=== PATIENT | female | born 1970 | race African-American/Black ===

== ENCOUNTER → 2017-01-21 | Outpatient (CLI) | payer BC ==
--- NOTE | ~2017-01-21 | CR210 ---
[facility] A Service of [facility] RADIOLOGY TEXT RESULTS PATIENT: STANTON JEAN LOCATION: [facility] : 72 UNIT #: [id number] AGE: [address]: Savanah Painting MD SEX: F ORDER DR: [id number] [facility] [place] [address] [place], [place] [address] [id number] O MR#: [id number] Acc #: [id number] NAME: STANTON JEAN : 1970 SEX: F STUDY DATE/TIME: 01/21/2017 16:54 UNIT: [facility] ROOM: STUDY DESCRIPTION: CR Ribs Uni 2 View W PA Ch Lt Attending Physician: Savanah Painting M.D. Referring Physician: Savanah Painting M.D. Ordering Physician: Savanah Painting M.D. Primary Care Physician: Savanah Painting M.D. MEDICAL IMAGING REPORT This report is preliminary unless electronic signature is present EXAM PA chest with AP and oblique views of the left ribs COMPARISON 2 views of the chest dated February 06, 2014 and June 21, 2015 INDICATIONS 46-year-old female with left-sided rib pain for 1 month. No known injury. FINDINGS Cardiomediastinal silhouette is within normal limits. No evidence of pneumothorax, pleural effusion or acute airspace disease. Prior cholecystectomy. No evidence of rib fracture or focal destruction. IMPRESSION No acute radiographic abnormality of the chest. No evidence of rib fracture or focal lesion. Dictated by... Justin Klein M.D. THIS IS AN ELECTRONICALLY VERIFIED REPORT Justin Klein M.D. at 01/24/2017 7:49 AM Titus TD: 01/22/2017 10:21 JOB #: [id number] MEDICAL IMAGING REPORT Page 1 of 1 COPY
== END | disposition home or self-care (01) ==
LOC: CRAD 16:08
DX: R07.9 Chest pain, unspecified (principal)
CPT/HCPCS: 71101

== ENCOUNTER → 2017-01-29 | Outpatient (CLI) | payer BC ==
--- NOTE | ~2017-01-29 | ST ---
Unit #: [id number] #: [id number] Patient: STANTON JEAN [id number] [address] [address] [id number] O MR#: [id number] NAME: STANTON JEAN : 1970 SEX: F STUDY DATE/TIME: 01/29/2017 UNIT: [facility] ROOM: STUDY DESCRIPTION: Attending Physician: Savanah Painting M.D. Referring Physician: Savanah Painting M.D. Primary Care Physician: Savanah Painting M.D. CARDIOLOGY REPORT EXAM Stress test. FINDINGS Baseline EKG: Normal sinus rhythm. Normal EKG. Resting heart rate 99 per minute. Blood pressure 133/85. PROCEDURE This 46-year-old patient was exercised on a Mango protocol for 6 minutes and 49 seconds, achieving heart rate of 164 per minute. Peak blood pressure was 200/90. Maximum workload obtained was 7 METs. Exercise was terminated because of fatigue. No ischemic changes noted. No arrhythmias noted. Blood pressure response was normal. IMPRESSION 1. Negative exercise stress for ischemia. 2. No arrhythmias noted. 3. Normal blood pressure response to exercise. Dictated by... Maris Multani/lilly TD: 01/29/2017 16:01 JOB #: [id number] CARDIOLOGY REPORT Page 1 of 1 X Mariel Diehl MD CARDIOLOGY REPORT
== END | disposition home or self-care (01) ==
LOC: CEKG 07:49
DX: R07.9 Chest pain, unspecified (principal)
CPT/HCPCS: 93017